=== PATIENT | female | born 1985 | race Caucasian/White ===

== ENCOUNTER 2017-12-05 10:08 | Inpatient (IN) | payer BC ==
[~2017-12-05] VITALS: Ht 172.7 cm; Wt 113.6 kg
[2017-12-05] VITALS (23 sets, daily range): BP systolic 103–155; BP diastolic 34–82; PULSE 88–128; TEMP 97.4–98.4
[2017-12-05 11:02] LABS: BASO # 0.1 (0.0-0.2); BASO % 0.4 % (0.0-2.0); EOS # 0.1 (0.0-0.7); EOS % 0.9 % (0-4.0); GRAN # 10.4 (1.4-6.5); GRAN % 78.6 % (42.2-75.2); HEMOGLOBIN 10.8 g/dl (12.5-16.0); LYMPH # 1.6 (1.2-3.4); LYMPH % 12.4 % (20.0-51.0); MEAN CELL VOLUME 90 fl (80.0-100.0); MEAN CORPUSCULAR HEMOGLOBIN 31 pg (27.0-31.0); MEAN CORPUSCULAR HGB CONC 35 g/dl (33.0-37.0); MEAN PLATELET VOLUME 10.1 fl (7.4-10.4); MONO # 0.9 (0.1-0.6); MONO % 6.6 % (1.7-9.3); PLATELET COUNT 234 K/mm3 (130-400); RED BLOOD COUNT 3.48 M/mm3 (4.10-5.30); REDCELL DISTRIBUTION WIDTH-CV 14.6 % (11.5-14.5)
[2017-12-05 11:04] LABS: HEMATOCRIT 31.2 % (37.0-47.0)
[2017-12-05 18:52] LABS: HIV 1/2 Antibodies Non-Reactive; HIV-1p24 Antigen Non-Reactive
[2017-12-06 01:30] VITALS: BP 112/58; PULSE 80; TEMP 98.1
[2017-12-06 06:58] VITALS: BP 124/75; PULSE 85; TEMP 97.6
[2017-12-06] MEDS ORDERED: MOTRIN 800800 MG/TAB PO (09:20)
[2017-12-06] MEDS ORDERED: PERCOCET 325 MG1 TA2 PO (09:21)
== END 2017-12-06 10:35 | disposition home or self-care (01) | DRG 766 ==
LOC: LDRO 10:08 → OB 10:43 → LDR 10:43 → OB 10:44
PROVIDERS: Obstetrics & Gynecology
PROC: 10D00Z1 Extraction of Products of Conception, Low, Open Approach (ICD-10-PCS; principal; 2017-12-05)
DX: O60.14X0 Preterm labor third trimester with preterm delivery third trimester, not applicable or unspecified (principal); O34.211 Maternal care for low transverse scar from previous cesarean delivery; O69.81X0 Labor and delivery complicated by cord around neck, without compression, not applicable or unspecified; O43.893 Other placental disorders, third trimester; Z37.0 Single live birth; Z3A.28 28 weeks gestation of pregnancy
CPT/HCPCS: J0702; J1580; J1885; J2175; J2250; J2370; J2405; J2590; J3010; J3475; J7120